=== PATIENT | male | born 1985 | race Caucasian/White ===

== ENCOUNTER 2018-02-01 19:01 | Observation (INO) | payer SELFPAY ==
[2018-02-01] MEDS ORDERED: Ketorolac INJ* 30 MG/ML 1 ML VIAL IV PUSH ONE (19:08)
[2018-02-01] MEDS ORDERED: HYDROmorphone INJ* 2 MG/ML CARPUJECT SYRINGE IV SLOW PU ONE ×3 (19:08→20:12)
[2018-02-01] MEDS ORDERED: HYDROmorphone INJ1* 1 MG/ML SYRINGE ONE (19:13)
[2018-02-01] MEDS ORDERED: HYDROmorphone INJ1* 1 MG/ML SYRINGE IV SLOW PU ONE (19:15)
--- NOTE | 2018-02-01 19:22 | ED ---
Adult Trauma - HPI Summary HPI Summary: Pt is a 32 year old M presenting to the ED with a chief complaint of lower extremity deformity. Per EMS, he was riding his skateboard at a skate park and sustained a bad break to his R leg. Pt states he was trying to show his daughter his skateboarding skills and he fell. Pt hit his head upon impact, questionable loss of consciousness, but has a laceration on the back of his head. Pt does not drink and wasnt drinking at the time. - History of Current Complaint Chief Complaint: EDTraumaMultiple Stated Complaint: RT LEG INJURY Time Seen by Provider: 02/01/18 19:07 Hx Obtained From: Patient Mechanism of Injury: Fall - skateboarding accident Mechanism of Injury (MVC): VS Stationary Object Ambulatory at the Scene: No Loss of Consciousness: unsure Onset/Duration: Started Hours Ago, Still Present Onset of Pain: Immediate Onset Severity: Severe Current Severity: Severe Pain Intensity: 10 Pain Scale Used: 0-10 Numeric Location: Head, Neck, Extremities - R leg Character: Stabbing Aggravating Factor(s): Movement, Weight Bearing, Ambulation Alleviating Factor(s): Nothing Associated Signs & Symptoms: Positive: SOB, Numbness/Weakness - Allergy/Home Medications Allergies/Adverse Reactions: Allergies Allergy/AdvReac Type Severity Reaction Status Date / Time No Known Allergies Allergy Verified 02/01/18 19:27 Home Medications: Home Medications NK [No Home Medications Reported] 02/01/18 [History Confirmed 02/01/18] PMH/Surg Hx/FS Hx/Imm Hx Previously Healthy: Yes Infectious Disease History: No Infectious Disease History: Denies: Traveled Outside the [place] in Last 30 Days - Social History Lives: With Family Review of Systems Negative: Fever Positive: Shortness Of Breath Positive: Arthralgia - occipital head, R leg, midline neck Positive: Headache, Weakness Positive: Anxious All Other Systems Reviewed And Are Negative: Yes Physical Exam - Summary Physical Exam Summary: Appearance: mildly agitated and tearful Skin: warm, dry, reflects adequate perfusion 2.5cm laceration to R occipital head, bleeding is controlled and there is a small hematoma in the area. Head/face: normal Eyes: EOMI, CURT ENT: mucous membranes moist Neck: midline C-spine is tender Respiratory: tachypnic, breath sounds present Cardiovascular: techycardic, pulses symmetrical Abdomen: non-tender, soft Bowel Sounds: present Musculoskeletal: deformity of distal third of lower R leg, strength/ROM intact Neuro: normal, sensory motor intact, A&Ox3 GCS: 15 Pt is at high risk for compartment disease. Triage Information Reviewed: Yes Vital Signs On Initial Exam: Initial Vitals Temp Pulse Resp BP Pulse Ox 99.0 F 97 18 134/84 100 02/01/18 19:09 02/01/18 19:09 02/01/18 19:09 02/01/18 19:09 02/01/18 19:09 Vital Signs Reviewed: Yes Procedures - Splinting Right Lower Extremity Hand-Made Type: orthoglass Splint: long leg posterior Pre-Proc Neuro Vasc Exam: normal Post-Proc Neuro Vasc Exam: normal - Laceration/Wound Repair 1 Location: head Description: Linear Length, Depth and Shape: 2cm, 0.5cm, linear Laceration/Wound Explored: clean, no foreign body removed Closure: [place] #__ Diagnostics - Vital Signs Vital Signs Temp Pulse Resp BP Pulse Ox 02/01/18 19:15 20 02/01/18 19:09 99.0 F 97 18 134/84 100 - Laboratory Result Diagrams: 02/01/18 19:28 02/01/18 19:28 Lab Statement: Any lab studies that have been ordered have been reviewed, and results considered in the medical decision making process. - Radiology Chest XRay Xray Interpretation: No Acute Changes Radiology Interpretation Completed By: ED Physician - Radiologist has not yet reviewed this report. Lower R leg Xray Interpretation: Positive (See Comments) Radiology Interpretation Completed By: ED Physician - Radiologist has not yet reviewed this report. - CT Brain CT CT Interpretation: No Acute Changes - Negative noncontrast head CT. CT Interpretation Completed By: Radiologist - ED physician has reviewed this report. C-spine CT CT Interpretation: No Acute Changes - 1. Early degenerative changes of uncovertebral joints at C3-C4. 2. Otherwise negative CT cervical spine. No fracture or subluxation is evident and no spinal or foraminal stenosis. CT Interpretation Completed By: Radiologist - ED physician has reviewed this report. Re-Evaluation - Re-Evaluation First Eval Change: Improved - with splinting and tx of pain Adult Trauma Course/Dx - Course Course Of Treatment: Pt with obv fx to lower tibia. Xray confirms distal tib, prox fib fx. Posterior splint applied. NV intact. Scalp lac repaired. CTs neg. Cleared from C-collar. D/W Ortho -- will admit for operative plan for am. No evidence of compartment syndrome at this time. - Diagnoses Provider Diagnoses: Tibia/fibula fracture, Scalp laceration, Closed head injury without loss of consciousness Discharge - Sign-Out/Discharge Documenting (check all that apply): Patient Departure - admit - Discharge Plan Condition: Fair Disposition: ADMITTED TO [facility] Referrals: No Primary Care Phys,NOPCP [Primary Care Provider] - - Billing Disposition and Condition Condition: FAIR Disposition: Admitted to [facility] - Attestation Statements Document Initiated by Scribe: Yes Documenting Scribe: Nasima Momin Provider For Whom Juanitoibe is Documenting (Include Credential): Gabriel Perez MD. Scribe Attestation: Nasima Resendiz, scribed for Gabriel Perez MD. on 02/01/18 at 2112. Scribe Documentation Reviewed: Yes Provider Attestation: The documentation as recorded by the scribe, Nasima Momin accurately reflects the service I personally performed and the decisions made by , Gabriel Perez MD. Consult Consult: 2004 - Spoke with Kenneth Artis MD., about the pt's condition who wants him admitted and will see him in the morning.
[2018-02-01 19:34] LABS: ABS Basophils 0 10^3/ul (0-0.2); ABS Eosinophils 0.1 10^3/ul (0-0.6); ABS Lymphocytes 2.4 10^3/ul (1.0-4.8); ABS Monocytes 0.4 10^3/ul (0-0.8); ABS Nucleated RBC 0 10^3/ul; Eosinophil % 1.2 % (0-6); Hematocrit 39 % (42-52); Hemoglobin 13.1 g/dl (14.0-18.0); Lymphocyte % 23.5 % (25-47); Mean Corpuscular HGB Conc 34 g/dl (31-36); Mean Corpuscular Hemoglobin 30 pg (27-31); Mean Corpuscular Volume 88 fL (80-94); Nucleated Red Blood Cells % 0.1; Platelet Count 185 10^3/ul (150-450); Red Blood Count 4.42 10^6/ul (4.00-5.40); Red Cell Distribution Width 13 % (10.5-15)
[2018-02-01 19:48] LABS: EGFR Non-African American 96.6 (>60)
[2018-02-01] MEDS ORDERED: Acetaminophen TAB* 325 MG PO PRN (20:16)
[2018-02-01] MEDS ORDERED: Ondansetron INJ* 2 MG/ML VIAL IV PRN (20:16)
--- NOTE | 2018-02-01 20:21 | RAD ---
EXAM: CT Head Without Intravenous Contrast EXAM DATE/TIME: 02/01/2018 7:58 PM CLINICAL HISTORY: 32 years old, male; Injury or trauma; Fall; Initial encounter; Abrasion; Head, generalized; Additional info: Head injury, ? loc TECHNIQUE: Axial computed tomography images of the head/brain without intravenous contrast. All CT scans at this facility use at least one of these dose optimization techniques: automated exposure control; mA and/or kV adjustment per patient size (includes targeted exams where dose is matched to clinical indication); or iterative reconstruction. COMPARISON: No relevant prior studies available. FINDINGS: Brain: Normal. No hemorrhage. No significant white matter disease. No edema. Ventricles: Normal. No ventriculomegaly. Bones/joints: Normal. No acute fracture. Sinuses: Normal as visualized. No acute sinusitis. Mastoid air cells: Normal as visualized. No mastoid effusion. Soft tissues: Normal. IMPRESSION: Negative noncontrast head CT. To contact [facility] with a general question: [facility] - [phone] For direct physician to physician contact: Physician Hotline - [phone] [facility] ([facility] Facility ID #[id number])
--- NOTE | 2018-02-01 20:25 | RAD ---
EXAM: CT Cervical Spine Without Intravenous Contrast EXAM DATE/TIME: 02/01/2018 8:03 PM CLINICAL HISTORY: 32 years old, male; Injury or trauma; Fall; Initial encounter; Abrasion; Additional info: Head injury, neck pain TECHNIQUE: Axial computed tomography images of the cervical spine without intravenous contrast. All CT scans at this facility use at least one of these dose optimization techniques: automated exposure control; mA and/or kV adjustment per patient size (includes targeted exams where dose is matched to clinical indication); or iterative reconstruction. Coronal and sagittal reformatted images were created and reviewed. COMPARISON: No relevant prior studies available. FINDINGS: Vertebrae: No acute fracture. Normal alignment. Soft tissues: Unremarkable. DISCS/SPINAL CANAL/NEURAL FORAMINA: C2-C3: No disc herniation. No spinal stenosis. No neural foraminal narrowing. C3-C4: Slight disc interspace narrowing with early degenerative change of uncovertebral joints and no spinal or foraminal stenosis. C4-C5: No disc herniation. No spinal stenosis. No neural foraminal narrowing. C5-C6: No disc herniation. No spinal stenosis. No neural foraminal narrowing. C6-C7: No disc herniation. No spinal stenosis. No neural foraminal narrowing. C7-T1: No disc herniation. No spinal stenosis. No neural foraminal narrowing. IMPRESSION: 1. Early degenerative changes of uncovertebral joints at C3-C4. 2. Otherwise negative CT cervical spine. No fracture or subluxation is evident and no spinal or foraminal stenosis. To contact [facility] with a general question: [facility] - [phone] For direct physician to physician contact: Physician Hotline - [phone] [facility] ([facility] Facility ID #[id number])
[2018-02-01] MEDS: Morphine VIAL* 4 MG/ML VIAL (1 ml vial) IV PRN (22:06)
[2018-02-01] MEDS: oxyCODONE/Acetamin 5/325 MG* TAB PO PRN (22:10)
[2018-02-01] MEDS: NS 0.9% 1000 ML* 1,000 ML IV SCH (22:13)
[2018-02-01] MEDS ORDERED: Mouth Piece, Nicotine* 1 EACH CARTRIDGE INH PRN (22:30)
[2018-02-01] MEDS: Nicotine GUM* 2 MG PO PRN (22:40)
[2018-02-01] MEDS: Nicotine Inhaler* 10 MG AMP INH PRN (22:41)
[2018-02-02] MEDS: Morphine VIAL* 4 MG/ML VIAL (1 ml vial) IV PRN (00:06)
[2018-02-02] MEDS ORDERED: Diazepam TAB(*) 5 MG ONE (00:49)
[2018-02-02] MEDS ORDERED: Diazepam TAB(*) 5 MG PO ONE ×2 (01:00→02:00)
[2018-02-02] MEDS: oxyCODONE/Acetamin 5/325 MG* TAB PO PRN ×5 (01:31→21:09)
[2018-02-02] MEDS: Morphine INJ* 4 MG/ML 1 ML SYRINGE (NEW SYRINGE VERSION) IV PRN ×7 (02:06→23:46)
--- NOTE | 2018-02-02 05:03 | HP ---
HISTORY AND PHYSICAL: DATE OF ADMISSION: 02/01/18 CHIEF COMPLAINT: Right tibia and fibular fractures. HISTORY OF PRESENT ILLNESS: Rocky is a 32-year-old, who recently moved up to the area from [place]. He was showing his child some games at the [employer] earlier today when he fell and broke his right lower leg. He came to the emergency room. He had hit his head. They did a CT scan of the head and neck and these were negative. The patient states that he does not drink. He is having a moderate amount of discomfort, feels unstable, and he says it sounds like it is clicking inside the splint. He has already been splinted by the emergency room staff. PAST MEDICAL HISTORY: Negative. PAST SURGICAL HISTORY: Negative for surgeries on that right lower leg. MEDICATIONS: No home medications. ALLERGIES: No known drug allergies. REVIEW OF SYSTEMS: As above. PHYSICAL EXAMINATION GENERAL: Awake and alert, very pleasant, in mild distress. SKIN: There are no lacerations over the leg. The skin is pink and warm and well perfused. MUSCULOSKELETAL: I did go ahead and palpate the compartments of the leg. It is soft. This includes both the posterior and anterior and lateral compartments. There is actually not much discomfort when I compress the leg. I am able to gently wiggle the toes with just mild discomfort. The foot is warm and well perfused. DIAGNOSTIC STUDIES/LAB DATA: I did review his right lower leg x-rays. It shows a proximal fibula fracture and a mid to distal third diaphyseal tibia fracture just below the isthmus at the diametaphyseal junction and it is displaced. IMPRESSION: Right displaced diametaphyseal distal tibia fracture in association with the proximal fibula fracture. PLAN/RECOMMENDATIONS: Given his pain, I want to make sure he did not have any compartment syndrome. The compartments are soft and compressible. After getting some Valium, he is much calmer and he is feeling much better. I did go ahead and augment his posterior slab splint with a "U" to give him some rotational support as well. This is helping tremendously. We will watch him closely overnight just to make sure he does not develop any signs or symptoms of compartment syndrome. Otherwise, the plan is for closed verus open reduction and internal fixation of the right tibia fracture tomorrow. [id number]/[facility] #: [id number] [facility]
[2018-02-02] MEDS: NS 0.9% 1000 ML* 1,000 ML IV SCH (07:38)
--- NOTE | 2018-02-02 07:58 | RAD ---
Indication: Chest deformity. Single view of the chest demonstrate no mediastinal shift. Mild cardiomegaly is noted. Lung watts appear clear. No prior study is available for comparison. IMPRESSION: No active cardiopulmonary disease is noted. R0
--- NOTE | 2018-02-02 08:00 | RAD ---
Indication: Right leg deformity 2 views right lower leg demonstrates spiral fracture of the distal tibia. Mild medial angulation of the distal fracture site. There appears to be a fracture of the proximal fibula as well. IMPRESSION: Spiral fracture distal tibia. Proximal fibula fracture. R0
--- NOTE | 2018-02-02 08:54 | CONSULT ---
Consult Consult: HPI Summary: Pt is a 32 year old M who presented to the ED last night with deformity to the lower leg. He states that he was riding his skateboard at a skate park and fell on his right leg. Pt states he was trying to show his daughter his skateboarding skills when he fell. He was seen in the ER last night by Dr. Artis who preformed a check of his lower extremity compartments. He is in pain currently, severe, sharp and constant. He states that any movement worsens the pain. Allergies Allergy/AdvReac Type Severity Reaction Status Date / Time No Known Allergies Allergy Verified 02/01/18 19:27 Home Medications NK [No Home Medications Reported] 02/01/18 [History Confirmed 02/01/18] PMHx: Negative Past Surgical Hx: Exploratory surgery as an . No other surgery. Social History: Pt lives with family. He states that he does not drink. Admits to smoking cigarettes. Denies any illicit drug use. ROS: General: Denies fevers, chills or night sweats. No known anesthesia problems. HEENT: admits to mild BARRETT denies lightheadedness or syncopal episodes Cardiothoracic: Denies for chest pain, heart palpitations, or edema Pulmonary: Denies for SOB with exertion, chronic cough, COPD or asthma GI: denies N/V/D/C : Negative for nocturia, urinary frequency, urinary urgency, history of UTIs or kidney problems Musculoskeletal: admits to pain in the right leg negative for chronic or intermittent back pain or fractures Neuro: Denies paresthesias, numbness, seizure, stroke, epilepsy, depression or anxiety Physical Exam: Vital Signs Temp 98.2 F 02/02/18 07:38 Pulse 63 02/02/18 07:38 Resp 16 02/02/18 07:38 BP 130/73 02/02/18 07:38 Pulse Ox 98 02/02/18 07:38 Intake & Output 02/01/18 02/02/18 02/02/18 18:59 06:59 18:59 Intake Total 0 920 Output Total 500 Balance -500 920 Weight 240 lb Intake: IV Fluids 920 NS (0.9%) 920 Oral 0 Output: Urine 500 Appearance: Awake and oriented. Slight distress due to pain . HEENT: Normocephalic, atraumatic, hearing and vision grossly intact. Respiratory: Lungs are clear to auscultation bilaterally, no wheezes or rales present Cardiovascular: regular rate and rhythm, normal S1 and S2, no appreciable S3 or S4. No murmurs, rubs or gallops appreciated. Musculoskeletal: There is a splint on the lower extremity . Pt is able to wiggle toes. Sensate to toes distally. palpable pulses. Neuro: normal, sensory motor intact, A&Ox3 Imaging X-ray of the right lower extremity was obtained and reviewed. There is a spiral fracture distal tibia. Proximal fibula fracture. Assessment 1. Right distal tibia fracture 2. Right proximal fibula fracture Plan: 1. Dr. Artis evaluated the pts compartments last night and the pts compartments were found to be negative for increased pressure 2. To OR today for right tibia IM nail 3. Continue with NPO 4. Continue with pain medications.
[2018-02-02] MEDS: Nicotine Inhaler* 10 MG AMP INH PRN ×2 (13:01→21:08)
[2018-02-02] MEDS: Nicotine GUM* 2 MG PO PRN ×3 (13:01→23:52)
[2018-02-02] MEDS ORDERED: Midazolam* 1 MG/ML 5 ML VIAL (5 MG) ONE (13:26)
[2018-02-02] MEDS ORDERED: fentaNYL* 50 MCG/ML 5 ML VIAL (250 MCG VIAL) ONE (13:26)
[2018-02-02] MEDS ORDERED: Rocuronium* 10 MG/ML VIAL ONE (13:48)
[2018-02-02] MEDS ORDERED: Propofol* 10 MG/ML 20 ML BTL IV PUSH ONE (13:48)
[2018-02-02] MEDS ORDERED: ceFAZolin 2 GM PREMIX in ORs 2 GM/50 ML BAG IVPB ONE (13:58)
[2018-02-02] MEDS ORDERED: Acetaminophen IV 1GM/100ML * 1,000 MG/100 ML VIAL IVPB ONE (14:17)
[2018-02-02] MEDS ORDERED: Naloxone* 0.4 MG/ML 1 ML VIAL IV PRN (14:17)
[2018-02-02] MEDS ORDERED: DiMENhydriNATE IV* 50 MG/ML VIAL IV PUSH PRN (14:17)
[2018-02-02] MEDS ORDERED: HYDROcodone/ACETAMIN 5-325 MG* 1 TAB PO PRN (14:17)
[2018-02-02] MEDS ORDERED: Ketorolac INJ* 30 MG/ML 1 ML VIAL IV PRN (14:17)
[2018-02-02] MEDS ORDERED: PROCHLORPERAZINE INJ 5 MG/ML 2 ML VIAL IV PRN (14:17)
[2018-02-02] MEDS ORDERED: Bupivacaine 0.25% SDV* 30 ML ONE (14:25)
[2018-02-02] MEDS ORDERED: HYDROmorphone INJ1* 1 MG/ML SYRINGE ONE ×4 (14:58→19:34)
[2018-02-02] MEDS ORDERED: Dexamethasone IV* 4 MG/ML 1 ML (4 MG) ONE (16:12)
[2018-02-02] MEDS ORDERED: Lidocaine 2% PF * 5 ML VIAL ONE (16:12)
[2018-02-02] MEDS ORDERED: Ondansetron INJ* 2 MG/ML VIAL ONE (17:12)
--- NOTE | 2018-02-02 17:43 | RAD ---
INDICATION: Right tibia fracture COMPARISONS: February 01, 2018 TECHNIQUE: Fluoroscopy was provided for a surgical procedure. Total fluoroscopy time is: 113.4 seconds FINDINGS: Spot images demonstrate internal fixation of the tibia. IMPRESSION: FLUOROSCOPY WAS PROVIDED FOR A SURGICAL PROCEDURE CPT II Codes: G9500
[2018-02-02] MEDS ORDERED: fentaNYL* 50 MCG/ML 2 ML VIAL (100 MCG VIAL) ONE ×2 (17:58→18:22)
[2018-02-02] MEDS ORDERED: Ketorolac INJ* 30 MG/ML 1 ML VIAL ONE (17:59)
[2018-02-02] MEDS ORDERED: Acetaminophen IV 1GM/100ML * 100 ML ONE (17:59)
[2018-02-02] MEDS: HYDROmorphone INJ1* 1 MG/ML SYRINGE IV PRN ×4 (18:00→19:08)
[2018-02-02] MEDS: fentaNYL* 50 MCG/ML 2 ML VIAL (100 MCG VIAL) IV PRN ×4 (18:08→18:57)
[2018-02-03] MEDS: oxyCODONE/Acetamin 5/325 MG* TAB PO PRN ×4 (00:51→12:13)
[2018-02-03] MEDS: NS 0.9% 1000 ML* 1,000 ML IV SCH (00:55)
[2018-02-03] MEDS ORDERED: QUEtiapine TAB* 25 MG PO ONE (02:20)
[2018-02-03] MEDS: Morphine INJ* 4 MG/ML 1 ML SYRINGE (NEW SYRINGE VERSION) IV PRN (02:51)
[2018-02-03] MEDS: Enoxaparin(*) 40 MG/0.4 ML SYR SUBCUT SCH ×2 (07:47→08:54)
[2018-02-03] MEDS: Nicotine GUM* 2 MG PO PRN (07:47)
--- NOTE | 2018-02-03 08:18 | PN ---
Progress Note - Progress Note Date of Service: 02/03/18 SOAP: Subjective: [Pt was seen this am lying in bed. States he is in severe pain both in his knee and hips. 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 He states he would like something more for pain. Denies any chest pain, SOB, nausea or vomiting. ] Objective: [General: - Pt is slightly groggy, but oriented. MSK, RLE: Splint is c/d/i. Elevated on pillows with ICE bag present on that. He is able to wiggle toes and has sensation in toes. ] Vital Signs Temp 98.1 F 02/03/18 04:40 Pulse 61 02/03/18 04:40 Resp 16 02/03/18 06:03 BP 102/51 02/03/18 04:40 Pulse Ox 97 02/03/18 04:40 Intake & Output 02/02/18 02/03/18 02/03/18 18:59 06:59 18:59 Intake Total 2070 1340 Output Total 50 350 Balance 2019 990 Intake: IV Fluids 2070 NS (0.9%) 920 NS 50ML, Cefazolin 2G 50 lr 1100 Oral 1340 Output: Urine 350 Estimated Blood Loss 50 Other: # Bowel Movements 0 Assessment: [POD 1 right tibia IM nail] Plan: [- D/C home today - Pt does not like to use needles therefore lovenox will be discontinued and pt will be placed on xarelto - Pain medication was discussed with the pt. We discussed the use of percocet, we will send the pt home on oxycodone 5mg, Tylenol 325mg, and the pt was encouraged to use both alternating for pain control. - He will follow up with Dr. Artis in 10 - 14 days for follow up. ]
[2018-02-03 09:02] VITALS: BP 113/59
--- NOTE | 2018-02-03 09:32 | OP ---
DATE OF OPERATION: 02/02/18 - ROOM #333 DATE OF : 81 SURGEON: Kenneth Artis MD OPERATIONS ASST: ALVAREZ Li ANESTHESIOLOGIST: Dr. Heath. ANESTHESIA: General. PRE-OP DIAGNOSES: 1. Right displaced mid to distal diametaphyseal tibial fracture. 2. Right proximal fibular fracture. POST-OP DIAGNOSES: 1. Right displaced mid to distal diametaphyseal tibial fracture. 2. Right proximal fibular fracture. OPERATIVE PROCEDURE: 1. Percutaneous reduction and intramedullary nail fixation of right tibial mid to distal third diametaphyseal fracture. 2. Closed treatment of right proximal fibular fracture. INDICATIONS: Rocky had an injury at the [facility] yesterday when he was showing his daughter how to do a trick. He came to the emergency room, we observed him overnight and he presented for surgery. He does understand the risks and benefits including risk of wound problems necessitating soft tissue coverage, infection, nonunion, and malunion. He wished to proceed. ESTIMATED BLOOD LOSS: 50 mL. COMPLICATIONS: None. FINDINGS: See above and below. DESCRIPTION OF PROCEDURE: Rocky was seen in the preoperative holding area, the correct side, site, and procedure were identified. We came back to the operating room where he was positioned supine on the flattop table with a bump under the hip. The leg was pre-scrubbed and then prepped and draped with the Betadine prep in standard fashion. A time-out was performed. I brought in my C-arm and I marked out my fracture site. I then went ahead and planned for my reduction. He had some bruising over the anteromedial skin where the tip of the proximal fragment had been located. I did not want to do anything with the skin there. I came proximal posterior and medial to that and made a 1 cm incision. I bluntly dissected down to bone. I placed a single winston of the pointed reduction clamp over the bone there. I then percutaneously placed the anterior clamp over the distal fragment. I closed down the clamp and it aligned out anatomically. I then slowly positioned the leg with the radiolucent triangle with the knee flexed. I made a 5 cm incision over the patellar tendon. Full-thickness flaps were raised off the paratenon, the paratenon was incised longitudinally. The tendon was split longitudinally with the 10 blade. I then brought in the C-arm and I marked out my starting point just off the medial aspect of the lateral tibial spine and on the appropriate split location in the lateral view. The guidewire was introduced to the appropriate depth. I then overdrilled my starting point over the guidewire. I then placed the long ball tipped guidewire with a gentle bent at the tip and the guidewire was directed down the shaft into the center-center position distally, right at the physeal scar. The jena was then measured, a 330 mm jena was selected. I then went ahead and reamed up to a 9.5, he had a very narrow isthmus, I did not want to ream up any higher. I selected an 8 mm nail and placed this uneventfully until the nail was buried proximally. I then brought in my aiming arm and placed one proximal screw from medial out lateral. Please note at the very beginning of the case, I had went ahead and placed two guidewires into the posterior malleolar fragment as I was contemplating placing a couple of cannulated screws there. Ultimately, on fluoroscopic imaging this fragment looked very small and I thought it was probably not necessary to place the screws. I did leave the wires in place as I placed the rest of my instrumentation including my distal Crosslocks. Finally, I came distally and obtained perfect circles, I first placed the direct anterior screw in standard fashion. I then placed the anteromedial screw distal Crosslock in standard fashion. Lastly, I placed the direct medial distal Crosslock in standard fashion, and the more proximal medial distal Crosslock was too close to the fracture line and so I elected not to place that screw. Final fluoroscopic imaging was taken, everything was looking good. We irrigated out all the wounds, the patellar tendon split was closed with 0- Vicryl suture. The paratenon was closed with 3-0 Vicryl suture. All the skin wounds were closed with alfreda. A 0.25% Marcaine was infiltrated into the operative areas. Please note the tourniquet was inflated prior to placement of percutaneous clamp at 300 mmHg and deflated prior to reaming. The foot was nice and pink when we took off the Coban at the end of the case. We went ahead and placed him in a posterior short- leg splint with a U. He was then taken to the recovery room in stable condition. [id number]/[facility] #: [id number] [facility]
--- NOTE | 2018-02-06 04:23 | DS ---
DISCHARGE SUMMARY: DATE OF ADMISSION: 02/01/18 DATE OF DISCHARGE: 02/03/18 PRINCIPAL DIAGNOSIS: Tibia fracture. SURGEON: Kenneth Artis MD HISTORY OF PRESENT ILLNESS: Mr. Patino is a 32-year-old gentleman, who fractured his right tibia on 1 , who was admitted to the hospital and underwent an IM nail of the right tibia with Dr. Artis . HOSPITAL COURSE: He was admitted to the hospital on 02/01/18. He underwent an IM nail of the right tibia with Dr. Artis. He tolerated the procedure well. Postoperatively, he was placed on Lovenox fo r DVT prophylaxis and he was kept nonweightbearing. On postoperative day 1, he was afebrile and his vital signs were stable and he was discharged home in stable condition. DISCHARGE MEDICATIONS: He was given Xarelto 10 mg to take once a day for 2 weeks for DVT prophylaxis . He was given oxycodone 5 mg 1 to 2 tablets every 4 to 6 hours as needed for pain. PHYSICAL EXAM UPON DISCHARGE: He is afebrile. His vital signs are stable. The wound was clean and dry and his splint was intact. He was able to wiggle the toes and he had intact sensation and good c apillary refill. DISCHARGE INSTRUCTIONS: He was discharged home in stable condition. He will remain nonweightbearing . He will follow up with Dr. Artis next Friday or Friday. He will take Xarelto once a day for 2 weeks for DVT prophylaxis and he was given oxycodone 5 mg to take every 4 to 6 hours as needed for pain. He was instructed to keep the dressing clean, dry, and intact until his followup visit next we ek with Dr. Artis. ALVAREZ MALIN [id number]/[facility] #: [id number]
== END 2018-02-03 12:15 | disposition home or self-care (01) ==
LOC: ED 19:01 → SSU 20:16 → INTOOBSV 20:16
PROVIDERS: ADMIT Orthopaedic Surgery Hand Surgery; ATTEND Orthopaedic Surgery Hand Surgery
PROC: 0QSJ04Z Reposition Right Fibula with Internal Fixation Device, Open Approach (ICD-10-PCS; principal; 2018-02-01)
PROC: 0QSG04Z Reposition Right Tibia with Internal Fixation Device, Open Approach (ICD-10-PCS; 2018-02-01)
DX: S82.301A Unspecified fracture of lower end of right tibia, initial encounter for closed fracture (principal); S82.401A Unspecified fracture of shaft of right fibula, initial encounter for closed fracture; S01.01XA Laceration without foreign body of scalp, initial encounter; V00.131A Fall from skateboard, initial encounter; Y93.51 Activity, roller skating (inline) and skateboarding; Y92.9 Unspecified place or not applicable; R06.02 Shortness of breath; R53.1 Weakness; F41.9 Anxiety disorder, unspecified
CPT/HCPCS: 12001; 36415; 70450; 71045; 72125; 76001; 80048; 85025; 96374; 96375; 96376; 99285; A9270-GY; C1713; C1776; G0378; J0690; J1100; J1170; J1650; J1885; J2250; J2270; J2405; J2704; J3010

== ENCOUNTER 2018-02-10 11:59 | Emergency (ER) | payer MEDICAID ==
--- NOTE | 2018-02-10 13:15 | ED ---
Lower Extremity - HPI Summary HPI Summary: Patient is a 32-year-old male who presents emergency department for increased right leg pain. Patient sustained a tib-fib fracture about 2 weeks ago and had internal fixation by Dr. Artis. Patient states 3 days ago he walked into [facility] and his crutches slipped on a mat and he fell injuring his right leg again. Since he's had increased leg pain intermittent paresthesias. Symptoms are cwgx-yp-zygcpmsy in severity. Moving and touching leg makes symptoms worse. Nothing makes symptoms better. Taking oxycodone at home and took a dose just prior to arrival. - History of Current Complaint Chief Complaint: EDExtremityLower Stated Complaint: RT LEG PAIN AFTER SURGERY Time Seen by Provider: 02/10/18 12:38 Hx Obtained From: Patient Pain Intensity: 8 - Allergies/Home Medications Allergies/Adverse Reactions: Allergies Allergy/AdvReac Type Severity Reaction Status Date / Time No Known Allergies Allergy Verified 02/10/18 12:15 PMH/Surg Hx/FS Hx/Imm Hx Previously Healthy: Yes Musculoskeletal History: 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, Other Musculoskeletal History - L1-L2 fracture Sensory History: Denies: Hx Contacts or Glasses, Hx Hearing Aid Opthamlomology History: Denies: Hx Contacts or Glasses Infectious Disease History: No Infectious Disease History: Denies: Traveled Outside the [place] in Last 30 Days - Social History Occupation: Unemployed Lives: With Family Alcohol Use: None Substance Use Type: Reports: None Smoking Status (MU): Heavy Every Day Tobacco Smoker Type: Cigarettes Amount Used/How Often: 1 ppd Review of Systems Positive: Other - right leg pain Positive: Paresthesia. Negative: Numbness All Other Systems Reviewed And Are Negative: Yes Physical Exam Triage Information Reviewed: Yes Vital Signs On Initial Exam: Initial Vitals Temp Pulse Resp BP Pulse Ox 98.2 F 81 20 112/80 98 02/10/18 12:11 02/10/18 12:11 02/10/18 12:11 02/10/18 12:11 02/10/18 12:11 Vital Signs Reviewed: Yes Appearance: Positive: Well-Appearing - Pt. sitting on bed in no acute distress. Skin: Positive: Warm, Dry Head/Face: Positive: Normal Head/Face Inspection Eyes: Positive: Normal, EOMI Neck: Positive: Supple Musculoskeletal: Positive: Other - Orthoglass splint in place to right lower leg. Brisk cap. refill. Neurological: Positive: Normal, CN Intact II-III Psychiatric: Positive: Anxious Procedures - Splinting Right Lower Extremity Hand-Made Type: orthoglass Splint: stirrup Pre-Proc Neuro Vasc Exam: normal Post-Proc Neuro Vasc Exam: normal Diagnostics - Vital Signs Vital Signs Temp Pulse Resp BP Pulse Ox 02/10/18 12:11 98.2 F 81 20 112/80 98 - Laboratory Lab Statement: Any lab studies that have been ordered have been reviewed, and results considered in the medical decision making process. Lower Extremity Course/Dx - Course Course Of Treatment: Patient presenting with recent surgery for tib-fib fracture and new injury. He is complaining of increased pain and paresthesias since falling at [facility]. X-rays shows surgical changes without acute findings , reading per radiology. I spoke with Dr. Artis she would like splint taken down to evaluate compartment wounds. No signs of DVT or compartment syndrome. Patient had significant pain with removing and re-splinting leg. Patient states he has a history of bad anxiety and does not tolerate pain well. Once splint was removed calf is soft. He has a good palpable pedial pulse. Healing noninfected surgical wounds noted. Wounds were dressed and Ortho-Glass splint was placed. Patient has an appointment with Dr. Artis on Friday. Advised to continue pain medication as directed. Ice and elevate. We'll return to the ER symptoms change or worsen. - Diagnoses Differential Diagnosis/HQI/PQRI: Positive: Compartment Syndrome, DVT, Fracture ( Closed), Sprain, Strain Provider Diagnoses: Leg fracture, right Discharge - Sign-Out/Discharge Documenting (check all that apply): Patient Departure - Discharge Plan Condition: Good Disposition: HOME Patient Education Materials: Ankle Fracture (ED) Referrals: [facility] [Outside] Kenneth Artis MD [Medical Doctor] - Additional Instructions: Follow up with Dr. Artis Friday as scheduled Call the [facility] today to schedule a follow up appointment Ice and elevate Pain medication as directed Return to ER if symptoms change or worsen - Billing Disposition and Condition Condition: GOOD Disposition: Home
--- NOTE | 2018-02-10 13:31 | RAD ---
HISTORY: fall COMPARISONS: February 01, 2013 VIEWS: 2 , Frontal and lateral views of the right foreleg FINDINGS: BONE DENSITY: Normal. BONES: Again noted are fractures of the proximal fibular diaphysis and the distal tibial diaphysis. The patient is status post internal fixation of the tibia. There is no appreciable hardware failure or osteolysis. JOINTS: There is no arthropathy. ALIGNMENT: There is no dislocation. SOFT TISSUES: Unremarkable. OTHER FINDINGS: None. IMPRESSION: AGAIN NOTED ARE FRACTURES OF THE PROXIMAL FIBULA AND DISTAL TIBIA, STATUS POST INTERNAL FIXATION OF THE TIBIA.
[2018-02-10 14:27] VITALS: BP 129/80
== END 2018-02-10 14:25 | disposition home or self-care (01) ==
LOC: ED 11:59
DX: S82.831A Other fracture of upper and lower end of right fibula, initial encounter for closed fracture (principal); S82.101A Unspecified fracture of upper end of right tibia, initial encounter for closed fracture; W01.0XXA Fall on same level from slipping, tripping and stumbling without subsequent striking against object, initial encounter; Y92.512 Supermarket, store or market as the place of occurrence of the external cause; M06.9 Rheumatoid arthritis, unspecified; F17.210 Nicotine dependence, cigarettes, uncomplicated
CPT/HCPCS: 29515; 99282

== ENCOUNTER 2018-05-15 01:22 | Emergency (ER) | payer OTHER ==
--- OUTSIDE RECORDS SUMMARY | 2018-05-15 01:39 | XMS REPORT | Continuity of Care Document ---
:1985 External Reference #:[id number] Author Name Sara Cain Care Team Providers Name Role Phone Calderon Malik MD Primary Care Physician Unavailable Payers Type Date Identification Numbers Payment Provider Subscriber Effective: Policy Number: [id number] [employer] Rocky Patino 2018 Medicaid PayID: [id number] [address] [address] [place] [address] Expires: 2018 Policy Number: [id number] Medicaid Rocky Patino Group Name: 1 1 [address] PayID: [id number] [place] [address] Advance Directives Description No Information Available Problems Date Description Provider Status Onset: 02/02/2018 Unspecified fracture of shaft of Kenneth Artis MD Active right tibia, initial encounter for closed fracture Onset: 02/02/2018 Unspecified fracture of shaft of Kenneth Artis MD Active right fibula, initial encounter for closed fracture Onset: 02/18/2018 Panic disorder with agoraphobia Calderon Malik M.D. Active Onset: 02/18/2018 Mild recurrent major depression Calderon Malik M.D. Active Onset: 02/18/2018 Excruciating pain Calderon Malik M.D. Active Onset: 03/18/2018 Migraine without aura, not refractory Calderon Malik M.D. Active Family History Date Family Member(s) Problem(s) Comments Mother Diabetes Type II Mother Hypertension Siblings 1 diabetes Social History Type Date Description Comments Sex Unknown Lives With Spouse Occupation Unemployed ETOH Use Denies alcohol use Tobacco Use Start: Unknown Heavy tobacco smoker (more than 10 cigarettes/day) Recreational Drug Use Denies Drug Use Smoking Status Reviewed: 04/27/18 Heavy tobacco smoker (more than 10 cigarettes/day) Exercise Type/Frequency Exercises sporadically Allergies, Adverse Reactions, Alerts Description No Known Drug Allergies Medications Medication Date Status Form Strength Qnty SIG Indications Ordering Provider Sertraline HCL 04/27/ Active Tablets 100mg 60tabs take two F33.0 2018 tablets Stubbs, by mouth daily. Oxycodone-Acetami 04/27/ Active Tablets 5-325mg 4tabs 1 tablets Anastacia nophen 2018 by mouth Sutbbs, every 6 MD hours as needed for pain. Sumatriptan 03/04/ Active Tablets 100mg 9tabs use at G43.009 [facility] 2017 onset of jason Andrews M.D.,FACP ache,may repeat after 2h as needed Aspirin 02/03/ Active Tablets 325mg 45tabs 1 tab by Kenneth Medel mouth Chandra daily Sertraline HCL 03/04/ Hx Tablets 100mg 30tabs 1 by F33.0 Anastacia 2017 - mouth Stubbs, 04/27/ every day 2018 Oxycodone-Acetami 02/25/ Hx Tablets 7.5-325mg 60tabs 1 tab Anastacianeftali hester 2017 - every 6hr Stubbs, 04/27/ 2018 Alprazolam 02/18/ Hx Tablets 0.25mg 30tabs one by F40.01 Calderon 2017 - mouth Pachikara 04/27/ every , M.DCiaran 2019 8has needed for anxiety Sertraline HCL 02/18/ Hx Tablets 50mg 30tabs 1 by F33.0 Calderon 2017 - mouth Pachikara 03/04/ every day , M.DCiaran 2017 Oxycodone HCL 02/18/ Hx Tablets 10mg 30tabs 1 tab 8h R52 Calderon 2017 - as needed Pachikara 02/25/ , M.DCiaran 2017 Oxycodone HCL 02/06/ Hx Tablets 10mg 40tabs take 1 Kenneth 2017 - tab every Artis, 02/25/ 4-6 hours 2017 as needed pain Cyclobenzaprine 02/05/ Hx Tablets 10mg 30tabs take 1 Kenneth NUÑEZ 2017 - tab three Artis, 04/26/ times a 2019 day as needed for pain/musc le spasms Oxycodone HCL 02/03/ Hx Capsules 5mg 84caps 1-2 tabs Kenneth 2017 - by mouth Artis, 02/05/ every 4-6 2018 hours as needed pain Colace 02/03/ Hx Capsules 100mg 90caps 1 tab by Kenneth 2017 - mouth 2-3 Chandra, 04/23/ times a MD 2018 day as needed Xarelto 02/03/ Hx Tablets 10mg 14tabs 1 by Kenneth Medel - mouth Chandra, 04/23/ every day MD 2018 for 2 weeks Immunizations Description No Information Available Vital Signs Date Vital Result Comment 04/27/2018 3:43pm Height 69 inches 5'9" Weight 172.00 lb Heart Rate 93 /min BP Systolic 122 mmHg BP Diastolic 82 mmHg Body Temperature 98.6 F O2 % BldC Oximetry 98 % at rest on room air BMI (Body Mass Index) 25.4 kg/m2 03/18/2018 1:55pm Height 69 inches 5'9" Weight 172.00 lb Heart Rate 100 /min BP Systolic Sitting 140 mmHg BP Diastolic Sitting 80 mmHg O2 % BldC Oximetry 97 % BMI (Body Mass Index) 25.4 kg/m2 03/04/2018 1:32pm Height 69 inches 5'9" Weight 176.50 lb Heart Rate 83 /min BP Systolic 132 mmHg BP Diastolic 86 mmHg Body Temperature 97.8 F O2 % BldC Oximetry 99 % BMI (Body Mass Index) 26.1 kg/m2 02/18/2018 2:21pm Height 69 inches 5'9" Weight 169.00 lb Heart Rate 91 /min BP Systolic Sitting 117 mmHg BP Diastolic Sitting 77 mmHg O2 % BldC Oximetry 96 % BMI (Body Mass Index) 25.0 kg/m2 02/13/2018 10:59am Height 69 inches 5'9" Weight 165.00 lb Heart Rate 90 /min BP Systolic Sitting 126 mmHg BP Diastolic Sitting 74 mmHg Respiratory Rate 18 /min Pain Level 7 BMI (Body Mass Index) 24.4 kg/m2 Results Test Date Facility Test Result H/L Range Note Drug Abuse 03/19/2018 [facility] Urine Amphetamine Negative ng/ mL 1, 2 [address] [place] [address] [phone] Urine Barbiturates Negative ng/mL 3 Urine Benzodiazepines Negative ng/mL 4 Urine Cocaine Negative ng/mL 5 Urine Phencyclidine Negative ng/mL Cutoff: 25 Urine Tetrahydrocannabinol Negative ng/mL Cutoff: 50 6 Creatinine, Urine 111.6 mg/dL Specific [place] 1.014 pH 5.6 Oxidants Negative 7 Adulterants Comment Normal Codeine, Ur Not Detected ng/mL Cutoff: 25 8 Rqnxmbf-7-ykfp-glucuronide, Ur Not Detected ng/mL 9 Morphine, Ur Not Detected ng/mL Cutoff: 25 10 Xcqmdwds-2-mgtb-glucuronide, U Not Detected ng/mL 11 6-monoacetylmorphine, Ur Not Detected ng/mL Cutoff: 25 12 Hydrocodone, Ur Not Detected ng/mL Cutoff: 25 13 Norhydrocodone, Ur Not Detected ng/mL Cutoff: 25 14 Dihydrocodeine, Ur Not Detected ng/mL Cutoff: 25 15 Hydromorphone, Ur Not Detected ng/mL Cutoff: 25 16 Vjsnyqdzvduwf2tyvrlyuqjssactf Not Detected ng/mL 17 Oxycodone, Ur Present ng/mL Abnormal Cutoff: 25 18 Noroxycodone, Ur Present ng/mL Abnormal Cutoff: 25 19 Oxymorphone, Ur Present ng/mL Abnormal Cutoff: 25 20 Vjoakuhmbnp-7-ccql-glucuronide Present ng/mL Abnormal 21 Noroxymorphone, Ur Present ng/mL Abnormal Cutoff: 25 22 Fentanyl, Ur Not Detected ng/mL Cutoff: 2 23 Norfentanyl, Ur Not Detected ng/mL Cutoff: 2 24 Meperidine, Ur Not Detected ng/mL Cutoff: 25 25 Normeperidine, Ur Not Detected ng/mL Cutoff: 25 26 Naloxone, Ur Not Detected ng/mL Cutoff: 25 27 Qhwbjkyn-0-lcvs-glucuronide, U Not Detected ng/mL 28 Methadone, Ur Not Detected ng/mL Cutoff: 25 29 Eddp, Ur Not Detected ng/mL Cutoff: 25 30 Propoxyphene, Ur Not Detected ng/mL Cutoff: 25 31 Norpropoxyphene, Ur Not Detected ng/mL Cutoff: 25 32 Tramadol, Ur Not Detected ng/mL Cutoff: 25 33 O-desmethyltramadol, Ur Not Detected ng/mL Cutoff: 25 34 Tapentadol, Ur Not Detected ng/mL Cutoff: 25 35 N-desmethyltapentadol, Ur Not Detected ng/mL Cutoff: 50 36 Qirhsfkswy-bdwj-xccyhlnztmh, U Not Detected ng/mL 37 Buprenorphine, Ur Not Detected ng/mL Cutoff: 5 38 Norbuprenorphine, Ur Not Detected ng/mL Cutoff: 5 39 Norbuprenorphine glucuronide Not Detected ng/mL Cutoff: 20 40 Opioid Interpretation See Comment 41 3 [id number] REFERENCE VALUE Cutoff: 500 3 REFERENCE VALUE Cutoff: 200 4 REFERENCE VALUE Cutoff: 100 5 REFERENCE VALUE Cutoff: 150 6 ADDITIONAL INFORMATION This report is intended for use in clinical monitoring or management of patients. It is not intended for use in employment-related testing. 7 REFERENCE VALUE Cutoff: 200 mg/L 8 Tylenol 3 9 Metabolite of codeine REFERENCE VALUE Cutoff: 100 10 Ivelisse Gillespie, Contin; Also a minor metabolite (10%) of codeine and can be seen in low concentrations (<2,000 ng/mL) with poppy seed ingestion. 11 Metabolite of morphine REFERENCE VALUE Cutoff: 100 12 Metabolite of heroin 13 Lortab, Samson, Vicodin; Also a very minor metabolite of codeine and impurity (<1%) of oxycodone. 14 Metabolite of hydrocodone 15 Metabolite of hydrocodone 16 Dilaudid, Exalgo; Also a metabolite of hydrocodone and a minor (<5%) metabolite of morphine. 17 Metabolite of hydromorphone REFERENCE VALUE Cutoff: 100 18 Endocet, Percocet, Oxycontin 19 Metabolite of oxycodone 20 Numorphan, Opana; Also a metabolite of oxycodone. 21 Metabolite of oxymorphone REFERENCE VALUE Cutoff: 100 22 Metabolite of oxymorphone 23 Actiq, Duragesic, Fentora 24 Metabolite of fentanyl 25 Demerol 26 Metabolite of meperidine 27 Narcan 28 Metabolite of naloxone REFERENCE VALUE Cutoff: 100 29 Dolophine 30 Metabolite of methadone 31 Darvon, Darvocet 32 Metabolite of propoxyphene 33 Tradol, Ultram, Ultracet 34 Metabolite of tramadol 35 Nucynta 36 Metabolite of tapentadol 37 Metabolite of tapentadol REFERENCE VALUE Cutoff: 100 38 Buprenex, Suboxone 39 Metabolite of buprenorphine 40 Metabolite of buprenorphine 41 Test detected the presence of oxycodone and several metabolites (noroxycodone, oxymorphone, noroxymorphone, and lbdklfbmdbq-1-ivrm-glucuronide). Suspect use of oxycodone and/or oxymorphone within the past three days. ADDITIONAL INFORMATION This test was developed and its performance characteristics determined by [facility] in a manner consistent with CLIA requirements. This test has not been cleared or approved by the U.S. Food and Drug Administration. Test Performed by: [facility] [address] [place] [address] Procedures Date Code Description Status 02/13/2018 60062 Apply Splint Long Leg Completed 02/02/2018 67899 [place] Tibial Shaft FX W Or W/O Fibular FX W/Plates,Screws Or Completed [place] 02/02/2018 24275 TX Tibial Shaft FX W Or W/O Fibular FX W/Plates,Screws Or Completed Cerclag Encounters Type Date Location Provider Dx Diagnosis Office Visit 03/18/2018 [facility] Internal Calderon F40.01 Agoraphobia with 1:40p Donavon Malik M.D. panic disorder [place] G43.009 Migraine w/o aura, not intractable, w/o status migrainosus S82.201D Unsp fx shaft of right tibia, subs for clos fx w routn heal Office Visit 03/04/2018 1:40p [facility] Redd Mancera F40.01 Agoraphobia with Donavon Malik M.D. panic disorder [place] F33.0 Major depressive disorder, recurrent, mild S82.201D Unsp fx shaft of right tibia, subs for clos fx w routn heal G43.009 Migraine w/o aura, not intractable, w/o status migrainosus Office Visit 02/18/2018 2:00p [facility] Internal Calderon F40.01 Agoraphobia with Donavon Malik M.D. panic disorder [place] F33.0 Major depressive disorder, recurrent, mild S82.201D Unsp fx shaft of right tibia, subs for clos fx w routn heal Office Visit 02/01/2018 7:35a Orthopedic Kenneth S82.391A Ot fracture of Services Of MD Chandra lower end of [facility]. right tibia, init for clos fx S82.401A Unsp fracture of shaft of right fibula, init for clos fx Plan of Treatment Future Appointment(s):05/27/2018 1:30 pm - SHIRA Gross at [facility] - [address]04/28/2018 8:00 am - Danie Ramon MD at [facility].04/27/2018 - Tiara Herr RPA-CF33.0 Major depressive disorder, recurrent, mildNew Medication:Sertraline HCL 100 mg - take two tablets by mouth daily.Follow up:1. Increase dose of sertraline to 200 mg daily. Call if worsening symptoms or go to the hospital if thoughts of suicide as we discussed. 2. Follow up with Dr. Ramon tomorrow, 04/28/18 at 8am at the [address] [place] [address]. 3. Return to clinic in 1 month for recheck.F40.01 Agoraphobia with panic kjifwlfyY42.201D Unspecified fracture of shaft of right tibia, subsequent encComments:1. Pain requiring oxycodone 3 months after ORIF is concerning for non-union in individual who has risk of poor healing due to smoking. Called orthopedics and Dr. Ramon is able to see patient tomorrow for assessment. 2. Pain management will be handled by orthopedics as indicated3. Prescription for 4oxycodone 5-325 given to patient today until sees ortho.
--- NOTE | 2018-05-15 02:33 | ED ---
Back Pain - HPI Summary HPI Summary: This patient is a 32 year old male presenting to the emergency room with a cc of flank pain that began suddenly today. He rates the pain 10/10 in severity. He states he also has brown colored urine and vomiting due to pain. He denies hx of kidney stones. - History of Current Complaint Chief Complaint: EDFlankPain Stated Complaint: ABD PAIN Hx Obtained From: Patient Onset/Duration: Still Present Onset/Duration: Still Present Timing: Constant Back Pain Location: Is Discrete @ - flank Severity Initially: Moderate Severity Currently: Moderate Pain Intensity: 10 Pain Scale Used: 0-10 Numeric Associated Signs And Symptoms: Positive: Other - brown urine - Allergies/Home Medications Allergies/Adverse Reactions: Allergies Allergy/AdvReac Type Severity Reaction Status Date / Time No Known Allergies Allergy Verified 05/15/18 01:26 PMH/Surg Hx/FS Hx/Imm Hx Endocrine/Hematology History: Denies: Hx Systemic Lupus Erythematosus Cardiovascular History: Denies: Hx Cardiac Arrest, Hx Congenital Heart Disease, Hx Embolism Respiratory History: Denies: Hx Cystic Fibrosis, Hx Pneumonia Musculoskeletal History: 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, Other Musculoskeletal History - L1-L2 fracture Sensory History: Denies: Hx Contacts or Glasses, Hx Hearing Aid Opthamlomology History: Denies: Hx Contacts or Glasses Neurological History: Denies: Hx Transient Ischemic Attacks (TIA) Infectious Disease History: No Infectious Disease History: Denies: Traveled Outside the [place] in Last 30 Days - Family History Known Family History: Negative: Respiratory Disease - Social History Alcohol Use: None Substance Use Type: Reports: None Smoking Status (MU): Heavy Every Day Tobacco Smoker Type: Cigarettes Amount Used/How Often: 1 ppd Review of Systems Negative: Fever Positive: flank pain, hematuria All Other Systems Reviewed And Are Negative: Yes Physical Exam - Summary Physical Exam Summary: Appearance: Well appearing, no pain distress Skin: warm, dry, reflects adequate perfusion Head/face: normal Eyes: EOMI, CURT ENT: normal Neck: supple, non-tender Respiratory: CTA, breath sounds present Cardiovascular: RRR, pulses symmetrical Back: right CVA tenderness Abdomen: non-tender, soft Musculoskeletal: normal, strength/ROM intact Neuro: normal, sensory motor intact, A&Ox3 Triage Information Reviewed: Yes Vital Signs On Initial Exam: Initial Vitals Temp Pulse Resp BP Pulse Ox 98.3 F 85 20 145/84 97 05/15/18 01:24 05/15/18 01:24 05/15/18 01:24 05/15/18 01:24 05/15/18 01:24 Vital Signs Reviewed: Yes Diagnostics - Vital Signs Vital Signs Temp Pulse Resp BP Pulse Ox 05/15/18 01:24 98.3 F 85 20 145/84 97 - Laboratory Result Diagrams: 05/15/18 02:52 05/15/18 02:52 Lab Statement: Any lab studies that have been ordered have been reviewed, and results considered in the medical decision making process. - CT CT ABD pelvis CT Interpretation Completed By: Radiologist Summary of CT Findings: , A 2 mm right mid ureteral stone with hydronephrosis and hydroureter. ED Physician has reviewed this report Back Pain Course/Dx - Course Assessment/Plan: This patient is a 32 year old male presenting to the emergency room with a cc of flank pain that began suddenly today. He rates the pain 10/10 in severity. He states he also has brown colored urine and vomiting due to pain. He denies hx of kidney stones. CT ABD/Pelvis reveals, per radiology, A 2 mm right mid ureteral stone with hydronephrosis and hydroureter. In the ED course the patient was given IV fluids, toradol, zofran, and morphine. Bloodwork obtained. The patient is using a lot of NSAIDs and it was strongly suggested he stop due to his kidney function test. The patient will be discharged and f/u with urology. - Diagnoses Differential Diagnosis/HQI/PQRI: Positive: Arthritis, Herniated Disc, Renal Colic, Strain Provider Diagnoses: Renal colic Discharge - Sign-Out/Discharge Documenting (check all that apply): Patient Departure Patient Received Moderate/Deep Sedation with Procedure: No - Discharge Plan Condition: Stable Disposition: HOME Prescriptions: oxyCODONE/Acetamin 5/325 MG* [Percocet 5/325 TAB*] 1 tab PO Q8H PRN #15 tab MDD 3 PRN Reason: Pain Tamsulosin HCl [Flomax] 0.4 mg PO ONCE #14 cap.er.24h Patient Education Materials: Renal Colic (ED) Referrals: Calderon Malik MD [Primary Care Provider] - Faraz Noriega MD [Medical Doctor] - 1 Day Additional Instructions: Follow up with your primary care physician in 1-3 days. RETURN TO THE EMERGENCY DEPARTMENT FOR CHANGING OR WORSENING SYMPTOMS - Billing Disposition and Condition Condition: STABLE Disposition: Home - Attestation Statements Document Initiated by Sancho: Yes Documenting Scribe: Olayinka Byrd Provider For Whom Sancho is Documenting (Include Credential): Ricki Mohan MD Scribe Attestation: Olayinka Resendiz , scribed for Ricki Mohan MD on 05/15/18 at 0525. Scribe Documentation Reviewed: Yes Provider Attestation: The documentation as recorded by the Olayinka lamas accurately reflects the service I personally performed and the decisions made by me, Ricki Mohan MD Status of Scribe Document: Viewed
[2018-05-15] MEDS ORDERED: NS 0.9% 1000 ML** 1,000 ML IV ONE (02:44)
[2018-05-15] MEDS ORDERED: Ondansetron INJ* 2 MG/ML VIAL IV ONE (02:44)
[2018-05-15] MEDS ORDERED: Morphine VIAL* 10 MG/ML 1 ML VIAL IV ONE (02:45)
[2018-05-15 03:05] LABS: ABS Basophils 0 10^3/ul (0-0.2); ABS Eosinophils 0 10^3/ul (0-0.6); ABS Lymphocytes 1.7 10^3/ul (1.0-4.8); ABS Monocytes 0.6 10^3/ul (0-0.8); ABS Neutrophils 9.3 10^3/ul (1.5-7.7); ABS Nucleated RBC 0 10^3/ul; Eosinophil % 0.4 %; Hematocrit 41 % (42-52); Hemoglobin 13.9 g/dl (14.0-18.0); Lymphocyte % 14.5 %; Mean Corpuscular HGB Conc 34 g/dl (31-36); Mean Corpuscular Hemoglobin 30 pg (27-31); Mean Corpuscular Volume 87 fL (80-94); Mean Platelet Volume 7.7 fL (7.4-10.4); Nucleated Red Blood Cells % 0; Platelet Count 226 10^3/ul (150-450); Red Blood Count 4.71 10^6/ul (4.00-5.40); Red Cell Distribution Width 14 % (10.5-15); White Blood Count 11.7 10^3/ul (3.5-10.8)
[2018-05-15 03:11] LABS: Activated Partial Thrombo Time 29.1 seconds (26.0-36.3); INR 0.93 (0.77-1.02)
[2018-05-15 03:23] LABS: Albumin 4.7 g/dL (3.2-5.2); Calcium 9.7 mg/dL (8.6-10.3); EGFR African American 81.5 (>60); EGFR Non-African American 67.4 (>60); Globulin 2.3 g/dL (2-4); Potassium 3.9 mmol/L (3.5-5.0); Total Bilirubin 0.4 mg/dL (0.2-1.0)
[2018-05-15] MEDS ORDERED: Ketorolac INJ* 30 MG/ML 1 ML VIAL IV PUSH ONE (03:30)
[2018-05-15 04:37] LABS: Urine Appearance Cloudy; Urine Bacteria Absent (Absent); Urine Bilirubin Negative (Negative); Urine Blood 3+ (Negative); Urine Color Amber; Urine Glucose Negative (Negative); Urine Ketones Negative (Negative); Urine Nitrite Negative (Negative); Urine Protein 2+(100 mg/dL) (Negative); Urine Red Blood Cell 3+(>10/hpf) (Absent); Urine Specific Gravity 1.028 (1.010-1.030); Urine Urobilinogen Negative (Negative); Urine White Blood Cell Trace(0-5/hpf) (Absent)
[2018-05-15 05:51] VITALS: BP 128/76
== END 2018-05-15 06:04 | disposition home or self-care (01) ==
LOC: ED 01:22
DX: N23 Unspecified renal colic (principal); R10.84 Generalized abdominal pain; R31.9 Hematuria, unspecified; F17.210 Nicotine dependence, cigarettes, uncomplicated
CPT/HCPCS: 36415; 74176; 80053; 81003; 81015; 83690; 85025; 85610; 85730; 87086; 96361; 96374; 96375; 99282; J1885; J2270; J2405

== ENCOUNTER 2019-01-07 16:40 | Emergency (ER) | payer OTHER ==
[2019-01-07 17:22] LABS: ABS Eosinophils 0.2 10^3/ul (0-0.6); ABS Lymphocytes 2.1 10^3/ul (1.0-4.8); ABS Monocytes 0.4 10^3/ul (0-0.8); ABS Neutrophils 4.6 10^3/ul (1.5-7.7); Eosinophil % 2.2 %; Hematocrit 43 % (42-52); Hemoglobin 14.3 g/dL (14.0-18.0); Lymphocyte % 28.7 %; Mean Corpuscular HGB Conc 33 g/dL (31-36); Mean Corpuscular Hemoglobin 29 pg (27-31); Mean Corpuscular Volume 87 fL (80-94); Mean Platelet Volume 7.8 fL (7.4-10.4); Nucleated Red Blood Cells % 0.1; Platelet Count 231 10^3/uL (150-450); Red Cell Distribution Width 14 % (10-15); White Blood Count 7.4 10^3/uL (3.5-10.8)
[2019-01-07 17:28] LABS: INR 0.93 (0.82-1.09)
[2019-01-07 17:45] LABS: Albumin 4.1 g/dL (3.2-5.2); Albumin/Globulin Ratio 1.8 (1-3); BUN/Creatinine Ratio 13.1 (8-20); EGFR African American 125.8 (>60); Globulin 2.3 g/dL (2-4); Total Bilirubin 0.3 mg/dL (0.2-1.0); Total Protein 6.4 g/dL (6.4-8.9)
[2019-01-07 18:55] LABS: Potassium 4.1 mmol/L (3.5-5.0)
--- NOTE | 2019-01-07 19:57 | ED ---
Abdominal Pain/Male - HPI Summary HPI Summary: This pt is a 33 y/o male presenting to [facility] c/o right flank pain x2 days. Pt reports his right flank pain has been worsening since onset. This morning pt reports he had nausea and vomiting, described as "green stuff." Pt states he feels dehydrated. Denies fever, diarrhea. PMHx includes kidney stones. NKDA. Pt denies alcohol and drug use, but does admit to tobacco use. - History of Current Complaint Chief Complaint: EDFlankPain Stated Complaint: RT FLANK PAIN PER PT Time Seen by Provider: 01/07/19 19:40 Hx Obtained From: Patient Onset/Duration: Lasting Days, Still Present Timing: Lasting Days Severity Currently: Severe Pain Intensity: 9 Pain Scale Used: 0-10 Numeric Location: Flank - Right Radiates: No Character: Other: - aching Aggravating Factor(s): Nothing Alleviating Factor(s): Nothing Associated Signs And Symptoms: Positive: Nausea, Vomiting. 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, Other Musculoskeletal History - L1-L2 fracture Sensory History: Denies: Hx Contacts or Glasses, Hx Hearing Aid Opthamlomology History: Denies: Hx Contacts or Glasses Neurological History: Denies: Hx Transient Ischemic Attacks (TIA) Infectious Disease History: No Infectious Disease History: Denies: Traveled Outside the [place] in Last 30 Days - Family History Known Family History: Negative: Respiratory Disease - Social History Alcohol Use: None Substance Use Type: Reports: None Smoking Status (MU): Heavy Every Day Tobacco Smoker Type: Cigarettes Amount Used/How Often: 1 ppd Review of Systems - ROS Summary Review of Systems Summary: Home Medications Medication Instructions Recorded Confirmed Type Docusate Sodium [Colace] 100 mg PO BID 30 Days capsule 02/03/18 02/10/18 Rx oxyCODONE TAB* [Roxycodone TAB 5 5 mg PO Q4H PRN #84 tab MDD 12 02/03/18 Rx mg*] Tamsulosin HCl [Flomax] 0.4 mg PO ONCE #14 cap.er.24h 05/15/18 Rx oxyCODONE/Acetamin 5/325 MG* 1 tab PO Q8H PRN #15 tab MDD 3 05/15/18 Rx [Percocet 5/325 TAB*] Negative: Fever, Chills Positive: Vomiting. Negative: Diarrhea Positive: flank pain - Right All Other Systems Reviewed And Are Negative: Yes Physical Exam - Summary Physical Exam Summary: General: Well-developed, Well-nourished male. Appears in mild discomfort. HEENT: Normocephalic, Atraumatic. Eyes: Conjuctiva normal, PERRL. Ears: TMs within normal limits. Nares: (-) discharge, (-) erythema. Oropharynx: Clear, mucous membranes moist, (-) exudates. Neck: Soft, FROM, (-) lymphadenopathy, (-) thyromegaly, (-) JVD. Cardiovascular: Normal sinus rhythm, (-) murmur. Lungs: Clear to auscultation bilaterally (-) wheezes, (-) rales, (-) rhonchi. Abdomen: Soft, he has mild right lateral tenderness of the abdomen, non- distended, (-) organomegaly, normal bowel sounds. Back: Mild right CVA tenderness Extremities: No edema. Skin: Warm, dry, (-) rash. Neuro: Alert and oriented x3, no focal deficits. Psychiatric: Mood normal, affect normal. Triage Information Reviewed: Yes Vital Signs On Initial Exam: Initial Vitals Temp Pulse Resp BP Pulse Ox 98.6 F 82 18 163/89 98 01/07/19 16:42 01/07/19 16:42 01/07/19 16:42 01/07/19 16:42 01/07/19 16:42 Vital Signs Reviewed: Yes Diagnostics - Vital Signs Vital Signs Temp Pulse Resp BP Pulse Ox 01/07/19 19:45 72 129/65 98 01/07/19 19:27 74 18 127/85 99 01/07/19 18:43 98.1 F 74 18 111/81 99 01/07/19 16:42 98.6 F 82 18 163/89 98 - Laboratory Lab Results: Lab Results 01/07/19 01/07/19 01/07/19 Range/Units 17:17 17:17 17:17 WBC 7.4 (3.5-10.8) 10^3/uL RBC 4.90 (4.18-5.48) 10^6 /uL Hgb 14.3 (14.0-18.0) g/dL Hct 43 (42-52) % MCV 87 (80-94) fL MCH 29 (27-31) pg MCHC 33 (31-36) g/dL RDW 14 (10-15) % Plt Count 231 (150-450) 10^3/uL MPV 7.8 (7.4-10.4) fL Neut % (Auto) 62.8 % Lymph % (Auto) 28.7 % Cassia % (Auto) 5.7 % Eos % (Auto) 2.2 % Baso % (Auto) 0.6 % Absolute Neuts (auto) 4.6 (1.5-7.7) 10^3/ul Absolute Lymphs (auto) 2.1 (1.0-4.8) 10^3/ul Absolute Monos (auto) 0.4 (0-0.8) 10^3/ul Absolute Eos (auto) 0.2 (0-0.6) 10^3/ul Absolute Basos (auto) 0.0 (0-0.2) 10^3/ul Absolute Nucleated RBC 0.0 10^3/ul Nucleated RBC % 0.1 INR (Anticoag Therapy) 0.93 (0.82-1.09) Sodium 139 (135-145) mmol/L Potassium 4.1 (3.5-5.0) mmol/L Chloride 108 (101-111) mmol/L Carbon Dioxide 27 (22-32) mmol/L Anion Gap 4 (2-11) mmol/L BUN 11 (6-24) mg/dL Creatinine 0.84 (0.67-1.17) mg/dL Est GFR ( Amer) 125.8 (>60) Est GFR (Non-Af Amer) 104.0 (>60) BUN/Creatinine Ratio 13.1 (8-20) Glucose 115 H (70-100) mg/dL Calcium 9.0 (8.6-10.3) mg/dL Total Bilirubin 0.30 (0.2-1.0) mg/dL AST 17 (13-39) U/L ALT 17 (7-52) U/L Alkaline Phosphatase 76 (34-104) U/L Troponin I 0.00 (<0.04) ng/mL Total Protein 6.4 (6.4-8.9) g/dL Albumin 4.1 (3.2-5.2) g/dL Globulin 2.3 (2-4) g/dL Albumin/Globulin Ratio 1.8 (1-3) Result Diagrams: 01/07/19 17:17 01/07/19 17:17 Lab Statement: Any lab studies that have been ordered have been reviewed, and results considered in the medical decision making process. - EKG 16:47 Cardiac Rate: NL - 81 bpm EKG Rhythm: Sinus Rhythm Summary of EKG Findings: EKG at 1647 reveals normal sinus rhythm with rate of 81 bpm, no acute changes, no ischemic changes. This EKG was reviewed and interpreted by Dr. Stinson. Re-Evaluation - Re-Evaluation First Eval Re-Evaluation Time: 21:28 Change: Unchanged Comment: Pt received 1 liter of fluid, Toradol and Zofran. He reports he is ready to go home. Pt was explained that a urinalysis is needed. He states he has tried to give a urine sample but he is unable to produce urine. Pt reports he would like to sign out against medical advice. Abdominal Pain Male Course/Dx - Course Assessment/Plan: Pt is a 33 y/o male presenting to [facility] c/o right flank pain x2 days. Pt reports his right flank pain has been worsening since onset. This morning pt reports he had nausea and vomiting, described as "green stuff.". Blood work obtained and unremarkable. In the ED course the patient received 1 liter of fluids, Toradol and Zofran. On re-evaluation patient reports he is ready to go home. Pt was explained that a urinalysis is needed. He states he has tried to give a urine sample but he is unable to produce urine. Pt reports he would like to sign out against medical advice. I have discussed the following alternative treatments with the patient: urinalysis, cat scan abdomen/ pelvis, further medications as appropriate. I have discussed the following risks and possible disability for failure to comply with recommended medical advice: swelling above kidney stones, kidney injury. Patient left AMA. - Diagnoses Provider Diagnoses: Right flank pain Discharge ED - Sign-Out/Discharge Documenting (check all that apply): Patient Departure - AMA Patient Received Moderate/Deep Sedation with Procedure: No - Discharge Plan Condition: Stable Disposition: AGAINST MEDICAL ADVICE Patient Education Materials: Flank Pain (ED) Referrals: Care [facility] [Outside] Additional Instructions: You are leaving against medical advice. Please follow up with your primary care provider within three days. Please return to the ED for any new or worsening symptoms. - Billing Disposition and Condition Condition: STABLE Disposition: Against Medical Advice - Attestation Statements Document Initiated by Scribe: Yes Documenting Scribe: Delphine Guaman Provider For Whom Juanitoibe is Documenting (Include Credential): Dr. Leana Stinson MD Scribe Attestation: Delphine Resendiz scribed for Dr. Leana Stinson MD on 01/08/19 at 0040. Scribe Documentation Reviewed: Yes Provider Attestation: The documentation as recorded by the Delphine lamas accurately reflects the service I personally performed and the decisions made by me, Dr. Leana Stinson MD Status of Scribe Document: Viewed
[2019-01-07] MEDS ORDERED: NS 0.9% 1000 ML** 1,000 ML IV ONE (20:11)
[2019-01-07] MEDS ORDERED: Ketorolac INJ* 30 MG/ML 1 ML VIAL IV PUSH ONE (20:11)
[2019-01-07] MEDS ORDERED: Ondansetron INJ* 2 MG/ML VIAL IV ONE (20:11)
[2019-01-07 21:46] VITALS: BP 117/68
== END 2019-01-07 21:45 | disposition left against medical advice (07) ==
LOC: ED 16:40
DX: R10.31 Right lower quadrant pain (principal); F17.210 Nicotine dependence, cigarettes, uncomplicated
CPT/HCPCS: 36415; 80053; 84484; 85025; 85610; 93005; 96361; 96374; 96375; 99283; J1885; J2405

== ENCOUNTER 2019-04-08 17:26 | Emergency (ER) | payer OTHER ==
[2019-04-08 18:23] LABS: ABS Lymphocytes 1.7 10^3/ul (1.0-4.8); ABS Monocytes 0.5 10^3/ul (0-0.8); ABS Neutrophils 5.2 10^3/ul (1.5-7.7); Eosinophil % 0.2 %; Hematocrit 41 % (42-52); Hemoglobin 14.5 g/dL (14.0-18.0); Lymphocyte % 22.6 %; Mean Corpuscular HGB Conc 35 g/dL (31-36); Mean Corpuscular Hemoglobin 30 pg (27-31); Mean Corpuscular Volume 85 fL (80-94); Mean Platelet Volume 7.6 fL (7.4-10.4); Platelet Count 247 10^3/uL (150-450); Red Blood Count 4.89 10^6 /uL (4.18-5.48); Red Cell Distribution Width 14 % (10-15); White Blood Count 7.5 10^3/uL (3.5-10.8)
[2019-04-08] MEDS: NS 0.9% 1000 ML** 1,000 ML IV ONE (18:39)
[2019-04-08] MEDS: Ondansetron INJ* 2 MG/ML VIAL IV ONE (18:39)
[2019-04-08 18:42] LABS: Albumin 4.7 g/dL (3.2-5.2); Albumin/Globulin Ratio 1.9 (1-3); C Reactive Protein 1.18 mg/L (<8.01); Calcium 9.7 mg/dL (8.6-10.3); EGFR African American 117.7 (>60); EGFR Non-African American 97.3 (>60); Globulin 2.5 g/dL (2-4); Potassium 3.7 mmol/L (3.5-5.0); Total Bilirubin 0.4 mg/dL (0.2-1.0); Total Protein 7.2 g/dL (6.4-8.9)
--- NOTE | 2019-04-08 19:05 | ED ---
Influenza-Like Illness - HPI Summary HPI Summary: Patient complains of body aches, nasal discharge, dry heaves, right ear pain, chills, diarrhea, intermittent abdominal cramping, decreased urine flow, decreased by mouth intake starting this morning. Patient states his whole family is sick with flulike symptoms. Also complains of chronic right leg pain status post some sort of leg surgery in 2018. Denies new trauma. Denies known fever, cough, sore throat, CP, SOB, abdominal pain. Medical history is none. - History of Current Complaint Chief Complaint: EDFluSymptoms Time Seen by Provider: 04/08/19 17:39 Hx Obtained From: Patient Onset/Duration: Sudden Onset, Lasting Hours Severity: Moderate Associated Signs & Symptoms: Myalgia, Nasal Congestion, Vomiting, Diarrhea - Allergy/Home Medications Allergies/Adverse Reactions: Allergies Allergy/AdvReac Type Severity Reaction Status Date / Time No Known Allergies Allergy Verified 04/08/19 17:33 Home Medications: Home Medications ALPRAZolam TAB* [Xanax TAB*] 1 mg PO TID PRN 04/08/19 [History Confirmed ] Gabapentin CAP(*) [Neurontin 300 CAP(*)] 600 mg PO BID 04/08/19 [History Confirmed 04/08/19] Sertraline* [Zoloft*] 100 mg PO DAILY 04/08/19 [History Confirmed 04/08/19] PMH/Surg Hx/FS Hx/Imm Hx Endocrine/Hematology History: Denies: Hx Systemic Lupus Erythematosus Cardiovascular History: Denies: Hx Cardiac Arrest, Hx Congenital Heart Disease, Hx Embolism Respiratory History: Denies: Hx Cystic Fibrosis, Hx Pneumonia History: Reports: Hx Kidney Stones Musculoskeletal History: 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, Other Musculoskeletal History - L1-L2 fracture Sensory History: Denies: Hx Contacts or Glasses, Hx Hearing Aid Opthamlomology History: Denies: Hx Contacts or Glasses EENT History: Denies: Hx Deafness Neurological History: Denies: Hx Transient Ischemic Attacks (TIA) Psychiatric History: Reports: Hx Anxiety Infectious Disease History: No Infectious Disease History: Denies: Traveled Outside the [place] in Last 30 Days - Family History Known Family History: Negative: Respiratory Disease - Social History Lives: With Family Alcohol Use: None Substance Use Type: Reports: None Smoking Status (MU): Heavy Every Day Tobacco Smoker Type: Cigarettes Amount Used/How Often: 1 ppd Review of Systems Positive: Chills Eyes: Negative Positive: Ear Ache, Nasal Discharge Cardiovascular: Negative Respiratory: Negative Positive: Abdominal Pain, Vomiting, Diarrhea, Nausea Positive: dysuria Positive: Myalgia Skin: Negative Neurological: Negative Psychological: Normal All Other Systems Reviewed And Are Negative: Yes Physical Exam Triage Information Reviewed: Yes Vital Signs On Initial Exam: Initial Vitals Temp Pulse Resp BP Pulse Ox 99.0 F 68 16 123/72 100 04/08/19 17:30 04/08/19 17:30 04/08/19 17:30 04/08/19 17:30 04/08/19 17:30 Vital Signs Reviewed: Yes Appearance: Positive: Well-Appearing Skin: Positive: Warm Head/Face: Positive: Normal Head/Face Inspection Eyes: Positive: Normal ENT: Positive: Normal ENT inspection Neck: Positive: Supple Respiratory/Lung Sounds: Positive: Clear to Auscultation Cardiovascular: Positive: Normal Abdomen Description: Positive: Nontender Musculoskeletal: Positive: Normal Neurological: Positive: Normal Psychiatric: Positive: Normal AVPU Assessment: Alert - [place] Coma Scale Best Eye Response: 4 - Spontaneous Best Motor Response: 6 - Obeys Commands Best Verbal Response: 5 - Oriented Coma Scale Total: 15 Procedures - Sedation Patient Received Moderate/Deep Sedation with Procedure: No Diagnostics - Vital Signs Vital Signs Temp Pulse Resp BP Pulse Ox 04/08/19 17:30 99.0 F 68 16 123/72 100 - Laboratory Lab Results: Lab Results 04/08/19 04/08/19 Range/Units 18:11 18:11 WBC 7.5 (3.5-10.8) 10^3/uL RBC 4.89 (4.18-5.48) 10^6 /uL Hgb 14.5 (14.0-18.0) g/dL Hct 41 L (42-52) % MCV 85 (80-94) fL MCH 30 (27-31) pg MCHC 35 (31-36) g/dL RDW 14 (10-15) % Plt Count 247 (150-450) 10^3/uL MPV 7.6 (7.4-10.4) fL Neut % (Auto) 70.0 % Lymph % (Auto) 22.6 % Hemphill % (Auto) 6.7 % Eos % (Auto) 0.2 % Baso % (Auto) 0.5 % Absolute Neuts (auto) 5.2 (1.5-7.7) 10^3/ul Absolute Lymphs (auto) 1.7 (1.0-4.8) 10^3/ul Absolute Monos (auto) 0.5 (0-0.8) 10^3/ul Absolute Eos (auto) 0.0 (0-0.6) 10^3/ul Absolute Basos (auto) 0.0 (0-0.2) 10^3/ul Absolute Nucleated RBC 0.0 10^3/ul Nucleated RBC % 0.0 Sodium 138 (135-145) mmol/L Potassium 3.7 (3.5-5.0) mmol/L Chloride 105 (101-111) mmol/L Carbon Dioxide 28 (22-32) mmol/L Anion Gap 5 (2-11) mmol/L BUN 8 (6-24) mg/dL Creatinine 0.89 (0.67-1.17) mg/dL Est GFR ( Amer) 117.7 (>60) Est GFR (Non-Af Amer) 97.3 (>60) BUN/Creatinine Ratio 9.0 (8-20) Glucose 95 (70-100) mg/dL Calcium 9.7 (8.6-10.3) mg/dL Total Bilirubin 0.40 (0.2-1.0) mg/dL AST 13 (13-39) U/L ALT 12 (7-52) U/L Alkaline Phosphatase 66 (34-104) U/L C-Reactive Protein 1.18 (<8.01) mg/L Total Protein 7.2 (6.4-8.9) g/dL Albumin 4.7 (3.2-5.2) g/dL Globulin 2.5 (2-4) g/dL Albumin/Globulin Ratio 1.9 (1-3) Result Diagrams: 04/08/19 18:11 04/08/19 18:11 Lab Statement: Any lab studies that have been ordered have been reviewed, and results considered in the medical decision making process. Flu Symptom Course/Dx - Course Course Of Treatment: Patient complains of body aches, nasal discharge, dry heaves, right ear pain, chills, diarrhea, intermittent abdominal cramping, decreased urine flow, decreased by mouth intake starting this morning. Patient states his whole family is sick with flulike symptoms. Also complains of chronic right leg pain status post some sort of leg surgery in 2018. Denies new trauma. Denies known fever, cough, sore throat, CP, SOB, abdominal pain. Medical history is none. Vital signs within normal limits. Labs unremarkable. Patient felt somewhat better after Zofran and 1 L normal saline. - Diagnoses Provider Diagnoses: Flu-like symptoms, Nausea & vomiting, Diarrhea Discharge ED - Sign-Out/Discharge Documenting (check all that apply): Patient Departure - Discharge Plan Condition: Stable Disposition: HOME Prescriptions: Ondansetron ODT TAB* [Zofran 4 MG Odt TAB*] 4 mg PO Q8H PRN 4 Days #14 tab.odt PRN Reason: Nausea Patient Education Materials: Acute Nausea and Vomiting (ED), Acute Diarrhea (ED ), Viral Syndrome (ED) Referrals: No Primary Care Phys,NOPCP [Primary Care Provider] - Additional Instructions: Use Zofran as directed for nausea. Drink plenty of fluids to maintain hydration. Alternate ibuprofen 600 mg with Tylenol 650 mg every 3 hours for two days for body aches, chills. Follow-up with primary care. Return to the ED for any new or worsening symptoms. - Billing Disposition and Condition Condition: STABLE Disposition: Home
[2019-04-08] MEDS: Ondansetron ODT TAB* 4 MG PO ONE (19:49)
[2019-04-08 20:01] VITALS: BP 126/75
== END 2019-04-08 20:01 | disposition home or self-care (01) ==
LOC: ED 17:26
DX: R09.81 Nasal congestion (principal); H92.01 Otalgia, right ear; R11.2 Nausea with vomiting, unspecified; R19.7 Diarrhea, unspecified; F41.9 Anxiety disorder, unspecified; F17.210 Nicotine dependence, cigarettes, uncomplicated; Z79.899 Other long term (current) drug therapy
CPT/HCPCS: 36415; 80053; 85025; 86140; 96361; 96374; 99282; A9270-GY; J2405